=== PATIENT | female | born 1955 | race Caucasian/White ===

== ENCOUNTER 2017-07-31 08:20 | Day surgery (SDC) | payer BC ==
[~2017-07-31 08:20] MED LIST: CHONDR SU A NA/HYALUR INTRAOC KIT (SURGICARE) ONE; EPINEPHRINE INJ/PF 1 MG/1 ML AMPULE ONE; KETOROLAC TROMETHAMINE 0.45% 4 DROP/0.4 ML DROPERETTE OD PRN; LIDOCAINE 1% INJ-PF (10 MG/ML) 30 ML SDV ONE; TOBRAMYCIN SULFATE/DEXAMETH OPH OINTMENT 3.5 GM ONE
[2017-07-31] MEDS: CYCLOPENTOLATE 0.2%/PHENYLEPHRINE 1% OPH SOLN 2 ML OD PRN ×3 (08:54→09:14)
[2017-07-31] MEDS: TROPICAMIDE 1% OPH SOLN 3 ML OD PRN ×3 (08:54→09:14)
[2017-07-31] MEDS: BESIFLOXACIN HCL 0.6% OPH SUSP 5 ML BOTTLE OD PRN ×3 (08:55→09:54)
[2017-07-31] MEDS: TETRACAINE HCL 0.5% OPH SOLN 0.6 ML DROPERETTE OD PRN ×3 (08:56→09:25)
[2017-07-31] MEDS ORDERED: MIDAZOLAM 2 MG/2 ML INJ ONE (09:19)
[2017-07-31] MEDS ORDERED: FENTANYL CITRATE INJ/PF 100 MCG/2 ML AMPUL ONE (09:19)
[2017-07-31] MEDS ORDERED: ONDANSETRON HCL INJ/PF 4 MG/2 ML SDV ONE (09:22)
[2017-07-31] MEDS ORDERED: HYALURONATE SODIUM SYRINGE 0.55 ML ONE (09:52)
== END 2017-07-31 10:34 | disposition home or self-care (01) ==
LOC: SC 08:20
PROVIDERS: ATTEND Ophthalmology
PROC: 089230Z Drainage of Right Anterior Chamber with Drainage Device, Percutaneous Approach (ICD-10-PCS; 2017-07-31)
PROC: 08RJ3JZ Replacement of Right Lens with Synthetic Substitute, Percutaneous Approach (ICD-10-PCS; principal; 2017-07-31 09:15)
DX: H25.11 Age-related nuclear cataract, right eye (principal); H40.1110 Primary open-angle glaucoma, right eye, stage unspecified; E05.90 Thyrotoxicosis, unspecified without thyrotoxic crisis or storm; F41.9 Anxiety disorder, unspecified; Z79.899 Other long term (current) drug therapy
CPT/HCPCS: 0191T; 66984; 142; C1783; J0171; J2250; J2405; J3010; J3490; V2788

== ENCOUNTER 2017-08-14 09:22 | Day surgery (SDC) | payer BC ==
[~2017-08-14 09:22] MED LIST changes: -KETOROLAC TROMETHAMINE 0.45% 4 DROP/0.4 ML DROPERETTE OD PRN; +KETOROLAC TROMETHAMINE 0.45% 4 DROP/0.4 ML DROPERETTE OS PRN; +LIDOCAINE 3.5% OPH GEL/PF 1 ML/TUBE OS PRN
[2017-08-14] MEDS: TETRACAINE HCL 0.5% OPH SOLN 0.6 ML DROPERETTE OS PRN ×3 (09:40→10:27)
[2017-08-14] MEDS: TROPICAMIDE 1% OPH SOLN 3 ML OS PRN ×3 (09:40→10:06)
[2017-08-14] MEDS: CYCLOPENTOLATE 0.2%/PHENYLEPHRINE 1% OPH SOLN 2 ML OS PRN ×3 (09:41→10:06)
[2017-08-14] MEDS: BESIFLOXACIN HCL 0.6% OPH SUSP 5 ML BOTTLE OS PRN ×3 (09:41→10:50)
[2017-08-14] MEDS ORDERED: MIDAZOLAM 2 MG/2 ML INJ ONE (10:11)
[2017-08-14] MEDS ORDERED: FENTANYL CITRATE INJ/PF 100 MCG/2 ML AMPUL ONE (10:11)
[2017-08-14] MEDS ORDERED: ONDANSETRON HCL INJ/PF 4 MG/2 ML SDV ONE (10:14)
[2017-08-15] MEDS ORDERED: TETRACAINE HCL 0.5% OPH SOLN 0.6 ML DROPERETTE OS PRN (05:00)
== END 2017-08-14 11:40 | disposition home or self-care (01) ==
LOC: SC 09:22
PROVIDERS: ATTEND Ophthalmology
PROC: 08RK3JZ Replacement of Left Lens with Synthetic Substitute, Percutaneous Approach (ICD-10-PCS; principal; 2017-08-14 10:30)
DX: H25.12 Age-related nuclear cataract, left eye (principal); Z98.41 Cataract extraction status, right eye; F41.9 Anxiety disorder, unspecified; E05.90 Thyrotoxicosis, unspecified without thyrotoxic crisis or storm; Z79.899 Other long term (current) drug therapy
CPT/HCPCS: 66984; C1783; V2788; J2250; J3490 ×3; J0171; J3010; J2405; 142; A9270 GY

== ENCOUNTER → 2019-11-16 | Outpatient (CLI) | payer BC ==
[2019-11-16 10:40] LABS: ALKALINE PHOSPHATASE 39 U/L (38-126); ANION GAP 11 (5-19); ASPARTATE AMINO TRANSFERASE 21 U/L (14-36); BILIRUBIN,DIRECT 0.2 mg/dL (0.0-0.4); BILIRUBIN,TOTAL 0.5 mg/dL (0.2-1.3); BLOOD UREA NITROGEN 22 mg/dL (7-20); CALCIUM 9.3 mg/dL (8.4-10.2); CARBON DIOXIDE 27 mmol/L (22-30); CHLORIDE 101 mmol/L (98-107); CHOLESTEROL 171.26 mg/dL (0-200); GLUCOSE 80 mg/dL (75-110); POTASSIUM 4.2 mmol/L (3.6-5.0); TOTAL PROTEIN 7.1 g/dL (6.3-8.2); TRIGLYCERIDES 50 mg/dL (<150)
[2019-11-16 10:51] LABS: DIRECT LDL 116 mg/dL (<100)
== END ==
LOC: OD 09:47
PROVIDERS: ATTEND Physician Assistant
DX: R00.2 Palpitations (principal); R55 Syncope and collapse; R94.31 Abnormal electrocardiogram [ECG] [EKG]
CPT/HCPCS: 36415; 80048; 80061; 80076; 83735

== ENCOUNTER 2019-11-17 09:22 | Observation (INO) | payer BC ==
[2019-11-17] MEDS ORDERED: DILTIAZEM HCL/D5W 125 MG/125 ML RTUINJ IV PRN (09:36)
[2019-11-17 09:47] LABS: ABSOLUTE EOSINOPHILS # (AUTO) 0.1 10^3/uL (0.0-0.6); ABSOLUTE LYMPHOCYTES (AUTO) 1.7 10^3/uL (0.5-4.7); ABSOLUTE MONOCYTES (AUTO) 0.8 10^3/uL (0.1-1.4); ABSOLUTE NEUT (AUTO) 5.5 10^3/uL (1.7-8.2); BASOPHILS % (AUTO) 0.3 % (0-2); EOSINOPHILS % (AUTO) 1.6 % (0-6); HEMOGLOBIN 14.6 g/dL (12.0-15.5); MEAN CORPUSCULAR HGB CONC 33.8 g/dL (32.0-36.0); MEAN CORPUSCULAR VOLUME 86 fl (80-97); MONOCYTES % (AUTO) 9.9 % (3-13); PLATELET COUNT 195 10^3/uL (150-450); RED BLOOD COUNT 5.01 10^6/uL (3.72-5.28); RED CELL DISTRIBUTION WIDTH 14.8 % (11.5-14.0); SEGMENTED NEUTROPHILS % (AUTO) 67.2 % (42-78); TOTAL CELLS COUNTED % (AUTO) 100 %; WHITE BLOOD COUNT 8.2 10^3/uL (4.0-10.5)
[2019-11-17 09:58] LABS: INTERNATIONAL RATION (INR) 0.97; PROTHROMBIN TIME 12.9 SEC (11.4-15.4)
[2019-11-17 10:13] LABS: ALBUMIN 4.3 g/dL (3.5-5.0); ALKALINE PHOSPHATASE 43 U/L (38-126); ANION GAP 12 (5-19); ASPARTATE AMINO TRANSFERASE 25 U/L (14-36); BILIRUBIN,DIRECT 0.2 mg/dL (0.0-0.4); BILIRUBIN,TOTAL 0.7 mg/dL (0.2-1.3); BLOOD UREA NITROGEN 19 mg/dL (7-20); CALCIUM 9.3 mg/dL (8.4-10.2); CARBON DIOXIDE 24 mmol/L (22-30); CHLORIDE 102 mmol/L (98-107); CREATINE KINASE 37 U/L (30-135); GLUCOSE 108 mg/dL (75-110); POTASSIUM 3.8 mmol/L (3.6-5.0); TOTAL PROTEIN 7.8 g/dL (6.3-8.2)
[2019-11-17 10:29] LABS: FREE T3 3.53 pg/mL (2.77-5.27); FREE T4 (FREE THYROXINE) 1.2 ng/dL (0.78-2.19)
[2019-11-17 10:34] LABS: APPEARANCE,URINE SLIGHTLY-CLOUDY; BILIRUBIN,URINE NEGATIVE (NEGATIVE); COLOR,URINE YELLOW; GLUCOSE, URINE NEGATIVE (NEGATIVE); KETONES,URINE 80 mg/dL (NEGATIVE); LEUKOCYTE ESTERASE,URINE MODERATE (NEGATIVE); NITRITE,URINE NEGATIVE (NEGATIVE); PROTEIN,URINE 30 mg/dL (NEGATIVE); URINE SPECIFIC GRAVITY 1.015; UROBILINOGEN,URINE NEGATIVE mg/dL (<2.0)
[2019-11-17 10:43] LABS: THYROID STIMULATING HORMONE 3.27 uIU/mL (0.47-4.68)
--- NOTE | 2019-11-17 10:43 | ER Document Report ---
Entered by NIKKI PARK SCRIBE 11/17/19 0929 Acting as scribe for:KENZIE GUTIÉRREZ MD ED General - General Stated Complaint: HEART PROBLEMS Time Seen by Provider: 11/17/19 09:27 Primary Care Provider: DEVANTE MASON PA-C [Primary Care Provider] - Follow up as needed Mode of Arrival: Medic Information source: Patient Notes: This 64 year old female patient brought in by EMS presents to the ED today with complaints of an elevated heart rate that started at 6:30 AM this morning. Patient states that this symptom has been off and on for several years. She is only recently sought medical care for this due to worsening symptoms. She reports an episode around giving that lasted 5 hours and had some near syncope with it. She did have outpatient lab work done yesterday, and had a Holter monitor placed yesterday. She has follow-up appointment with Dr. Islas. Patient reports lightheadedness with today's episode, but denies any pain. EMS had reported heart rate of 180, gave Cardizem 25 mg bolus. On arrival to the emergency room, the initial EKG showed a heart rate of 133. When I entered the room, the nurse was trying to start an IV in her left antecubital fossa region. It was causing considerable pain, patient was bearing down, and noted that her heart rate converted to a normal sinus rhythm with a rate in the 80s. Over the next few minutes the monitor showed intermittent brief atrial fibrillation. Cardizem drip was started. The patient is on hormone replacement therapy, and thyroid medication. TRAVEL OUTSIDE OF THE [place] IN LAST 30 DAYS: No - Related Data Allergies/Adverse Reactions: No Known Allergies Allergy (Unverified 07/25/17 15:22) Past Medical History - General Information source: Patient - Social History Smoking Status: Unknown if Ever Smoked Cigarette use (# per day): No Chew tobacco use (# tins/day): No Smoking Education Provided: No Frequency of alcohol use: Occasional Drug Abuse: None Family History: Reviewed & Not Pertinent Patient has suicidal ideation: No Patient has homicidal ideation: No Past Surgical History: Reports: Hx Hysterectomy, Hx Tonsillectomy Review of Systems - Review of Systems Constitutional: No symptoms reported EENT: No symptoms reported Cardiovascular: See HPI, Heart racing, Lightheaded Respiratory: No symptoms reported Gastrointestinal: No symptoms reported Genitourinary: No symptoms reported Female Genitourinary: No symptoms reported Musculoskeletal: See HPI. denies: Muscle pain Skin: No symptoms reported Hematologic/Lymphatic: No symptoms reported Neurological/Psychological: No symptoms reported -: Yes All other systems reviewed and negative Physical Exam - Vital signs Vitals: Resp Pulse Ox 16 96 11/17/19 09:32 11/17/19 09:32 - General General appearance: Alert - HEENT Head: Normocephalic, Atraumatic Eyes: Normal Pupils: PERRL - Respiratory Respiratory status: No respiratory distress Chest status: Nontender Breath sounds: Normal Chest palpation: Normal - Cardiovascular Rhythm: Other - Rhythm was regular initially but occasionally became irregular when the patient complained of severe pain while the nurse was trying to put in an IV. During the exam, the rhythm was bouncing back and forth between normal sinus rhythm and a fib. Heart sounds: Normal auscultation Murmur: No - Abdominal Inspection: Normal Distension: No distension Bowel sounds: Normal Tenderness: Nontender - Abdomen soft Organomegaly: No organomegaly - Back Back: Normal, Nontender - Extremities General upper extremity: Normal inspection General lower extremity: Normal inspection - Neurological Neuro grossly intact: Yes Orientation: AAOx4 - Psychological Associated symptoms: Normal affect, Normal mood - Skin Skin Temperature: Warm Skin Moisture: Dry Skin Color: Normal Course - Vital Signs Vital signs: Temp Pulse Resp BP Pulse Ox 15 112/64 97 11/17/19 10:31 11/17/19 10:31 11/17/19 10:31 - Laboratory Result Diagrams: 11/17/19 09:30 11/17/19 09:30 Laboratory results interpreted by me: 11/17/19 11/17/19 09:30 10:00 RDW 14.8 H Urine Protein 30 H Urine Ketones 80 H Ur Leukocyte Esterase MODERATE H Urine Ascorbic Acid 40 H - Diagnostic Test Radiology reviewed: Image reviewed - Chest x-ray did not show acute cardiopulmonary process - EKG Interpretation by Me EKG shows normal: [place], Intervals, ST-T Waves. abnormal: QRS Complexes - Abnormal R wave progression Rate: Tachycardia - 133 Rhythm: A.Fib When compared to previous EKG there are: Previous EKG unavailable - Consults Dr. Neal Time consulted: 10:50 Consulted provider: will come to ER Critical Care Note - Critical Care Note Total time excluding time spent on procedures (mins): 35 Discharge - Discharge Clinical Impression: Atrial fibrillation with rapid ventricular response Condition: Stable Disposition: ADMITTED OBSERVATION Admitting Provider: Val (Hospitalist) Unit Admitted: Telemetry Referrals: DEVANTE MASON PA-C [Primary Care Provider] - Follow up as needed Scribe Attestation: 11/17/19 09:58 I personally performed the services described in the documentation, reviewed and edited the documentation which was dictated to the scribe in my presence, and it accurately records my words and actions. I personally performed the services described in the documentation, reviewed and edited the documentation which was dictated to the scribe in my presence, and it accurately records my words and actions.
--- NOTE | 2019-11-17 11:20 | EKG REPORT ---
SEVERITY:- ABNORMAL ECG - ATRIAL FIBRILLATION PROBABLE INFERIOR INFARCT, AGE INDETERMINATE ABNRM R PROG, CONSIDER ASMI OR LEAD PLACEMENT : Confirmed by: Rhona Potts MD 17-Nov-2019 11:19:36
--- NOTE | 2019-11-17 11:43 | RADIOLOGY REPORT (SQ) ---
EXAM DESCRIPTION: CHEST SINGLE VIEW COMPLETED DATE/TIME: 11/17/2019 10:07 am REASON FOR STUDY: tachycardia COMPARISON: None. EXAM PARAMETERS: NUMBER OF VIEWS: One view. TECHNIQUE: Single frontal radiographic view of the chest acquired. RADIATION DOSE: NA LIMITATIONS: EKG leads over the chest, portable technique FINDINGS: LUNGS AND PLEURA: No opacities, masses or pneumothorax. No pleural effusion. MEDIASTINUM AND HILAR STRUCTURES: No masses. Contour normal. HEART AND VASCULAR STRUCTURES: Heart normal in size. Normal vasculature. BONES: No acute findings. HARDWARE: None in the chest. OTHER: No other significant finding. IMPRESSION: NO ACUTE RADIOGRAPHIC FINDING IN THE CHEST. TECHNICAL DOCUMENTATION: JOB ID: [id number] [employer]- All Rights Reserved Reading location - IP/workstation name: [email or web address]
--- NOTE | 2019-11-17 12:50 | PDOC H&P ---
History of Present Illness Admission Date/PCP: 11/17/19 11:16 DEVANTE MASON PA-C Patient complains of: Palpitations History of Present Illness: MAMADOU PENG is a 64 year old female with a history of hypothyroidism presents with complaints of palpitations. Patient has been having paroxysmal episodes of palpitations over the past few years which is sometimes associated with shortness of breath and was once associated with a syncopal episode around Thanksgiving last year. Patient just started to establish care with . Roshan will give patient an event monitor 1 day ago. Patient went to his office to return the event monitor today and she was started to feel palpitations. At that time she was noted to be tachycardic with heart rate over 200s as reported by EMS. Patient was noted to be in atrial fibrillation with rapid ventricular response and received a dose of diltiazem 25 mg bolus. In the ER she was started on a Cardizem drip and referred to hospitalist service for admission. Past Medical History Cardiac Medical History: Denies: Congestive Heart Failure, Coronary Artery Disease, Myocardial Infar ction, Hypertension, Peripheral Vascular Disease Pulmonary Medical History: Denies: Asthma Neurological Medical History: Denies: Hemorrhagic CVA, Ischemic CVA, Seizures Endocrine Medical History: Reports: Hypothyroidism Denies: Diabetes Mellitus Type 1, Diabetes Mellitus Type 2 GI Medical History: Denies: Hepatitis, Hiatal Hernia Hematology: Denies: Anemia, Sickle Cell Disease Past Surgical History Past Surgical History: Reports: Hysterectomy, Tonsillectomy Denies: Amputation, Mastectomy, Pacemaker Social History Information Source: Patient Smoking Status: Never Smoker Electronic Cigarette use?: No Frequency of Alcohol Use: Social Hx Recreational Drug Use: No - Advance Directive Resuscitation Status: Full Code Family History Family History: Other - tachycardia, palpitations Parental Family History Reviewed: Yes Children Family History Reviewed: Yes Sibling(s) Family History Reviewed.: Yes Medication/Allergy Home Medications: Alprazolam [Xanax] 0.25 mg PO HSP PRN 07/30/17 Thyroid,Pork [Nature-Throid] 32.5 mg PO Q6AM 07/30/17 Bio Identical Hormones 1 tab PO ASDIR PRN 11/17/19 Cholecalciferol (Vitamin D3) [Vitamin D3 2000 unit Tablet] 2,000 unit PO TID 11/17/19 Multivitamin Pack 1 packet PO DAILY 01/14/20 Mv,Misael,Iron,Mn/Folic Acid/Chol [Hair, Skin and Nails Capsule] 1 each PO DAILY 11/17/19 Progesterone, Micronized [Progesterone] 200 mg PO QHS 11/17/19 Allergies/Adverse Reactions: No Known Allergies Allergy (Unverified 07/25/17 15:22) Review of Systems Constitutional: ABSENT: chills, fever(s) Nose, Mouth, and Throat: ABSENT: headache(s) Cardiovascular: ABSENT: chest pain, dyspnea on exertion, orthropnea Respiratory: ABSENT: cough Gastrointestinal: ABSENT: abdominal pain, constipation, diarrhea, nausea, vomiting Musculoskeletal: ABSENT: joint swelling Integumentary: ABSENT: diaphoresis Neurological: ABSENT: confusion Psychiatric: ABSENT: anxiety Endocrine: ABSENT: cold intolerance, heat intolerance Physical Exam Vital Signs: Temp Pulse Resp BP Pulse Ox 15 112/64 97 11/17/19 10:31 11/17/19 10:31 11/17/19 10:31 Intake & Output 11/16/19 11/17/19 11/18/19 06:59 06:59 06:59 Weight 89.5 kg General appearance: PRESENT: no acute distress, cooperative Neck exam: ABSENT: JVD Respiratory exam: PRESENT: clear to auscultation ivana, symmetrical, unlabored. ABSENT: tachypnea, wheezes Cardiovascular exam: PRESENT: RRR, +S1, +S2. ABSENT: diastolic murmur, systolic murmur, tachycardia Vascular exam: ABSENT: pallor GI/Abdominal exam: PRESENT: normal bowel sounds, soft. ABSENT: distended, rebound, rigid, tenderness Extremities exam: ABSENT: pedal edema, +1 edema, +2 edema Musculoskeletal exam: PRESENT: ambulatory Neurological exam: PRESENT: alert, awake, oriented to person, oriented to place, oriented to time, oriented to situation Psychiatric exam: ABSENT: agitated, anxious Skin exam: ABSENT: jaundice Results Laboratory Results: 11/17/19 09:30 11/17/19 09:30 11/17/19 11/17/19 11/17/19 09:30 09:30 09:30 WBC 8.2 RBC 5.01 Hgb 14.6 Hct 43.0 MCV 86 MCH 29.0 MCHC 33.8 RDW 14.8 H Plt Count 195 Seg Neutrophils % 67.2 Sodium 137.5 Potassium 3.8 Chloride 102 Carbon Dioxide 24 Anion Gap 12 BUN 19 Creatinine 0.83 Est GFR ( Amer) > 60 Glucose 108 Calcium 9.3 Magnesium 2.0 Total Bilirubin 0.7 AST 25 Alkaline Phosphatase 43 Total Protein 7.8 Albumin 4.3 TSH 3.27 Free T4 1.20 Free T3 pg/mL 3.53 Urine Color Urine Appearance Urine pH Ur Specific [place] Urine Protein Urine Glucose (UA) Urine Ketones Urine Blood Urine Nitrite Ur Leukocyte Esterase Urine WBC (Auto) Urine RBC (Auto) 11/17/19 10:00 WBC RBC Hgb Hct MCV MCH MCHC RDW Plt Count Seg Neutrophils % Sodium Potassium Chloride Carbon Dioxide Anion Gap BUN Creatinine Est GFR ( Amer) Glucose Calcium Magnesium Total Bilirubin AST Alkaline Phosphatase Total Protein Albumin TSH Free T4 Free T3 pg/mL Urine Color YELLOW Urine Appearance SLIGHTLY-CLOUDY Urine pH 7.0 Ur Specific [place] 1.015 Urine Protein 30 H Urine Glucose (UA) NEGATIVE Urine Ketones 80 H Urine Blood NEGATIVE Urine Nitrite NEGATIVE Ur Leukocyte Esterase MODERATE H Urine WBC (Auto) 2 Urine RBC (Auto) 2 11/17/19 11/17/19 09:30 09:30 Creatine Kinase 37 Troponin I < 0.012 Impressions: Chest X-Ray 11/17/19 09:24 IMPRESSION: NO ACUTE RADIOGRAPHIC FINDING IN THE CHEST. Assessment and Plan - Diagnosis (1) Atrial fibrillation with rapid ventricular response Is this a current diagnosis for this admission?: Yes Plan: New onset paroxysmal atrial fibrillation Was in RVR in the 200s initially but currently now back in normal sinus rhythm after initiation of diltiazem drip Chads vasc score of 1 Start on baby aspirin D/c drip and Start diltiazem p.o. 60 mg ir every 6 hours Check echocardiogram TSH and electrolytes within normal limits Monitor on telemetry Patient just established care with Dr. Islas (2) Hypothyroid Qualifiers: Hypothyroidism type: acquired Qualified Code(s): E03.9 - Hypothyroidism, unspecified Is this a current diagnosis for this admission?: Yes Plan: Thyroid function test within normal limits - Time Time Spent with patient: 35 or more minutes
[2019-11-17] MEDS ORDERED: ALPRAZOLAM 0.25 MG TABLET PO PRN (14:13)
[2019-11-17] MEDS ORDERED: DILTIAZEM HCL 30 MG TABLET ONE (16:02)
[2019-11-17] MEDS ORDERED: DILTIAZEM HCL 60 MG TABLET ONE (16:07)
[2019-11-17] MEDS: DILTIAZEM HCL 60 MG TABLET PO SCH ×2 (16:45→17:15)
[2019-11-17] MEDS ORDERED: DILTIAZEM HCL 60 MG TABLET PO SCH (18:00)
[2019-11-17] MEDS ORDERED: METOPROLOL TARTRATE PF/INJ 5 MG/5 ML SDV IV PRN (18:48)
[2019-11-18] MEDS: DILTIAZEM HCL 60 MG TABLET PO SCH ×2 (00:27→05:07)
[2019-11-18] MEDS ORDERED: THYROID PORK 32.5 MG PO SCH (06:00)
--- NOTE | 2019-11-18 09:20 | PDOC DISCHARGE SUMMARY ---
Impression - Admit/DC Date/PCP Admission Date/Primary Care Provider: 11/17/19 11:16 DEVANTE MASON PA-C Discharge Date: 11/18/19 - Discharge Diagnosis (1) Paroxysmal atrial fibrillation with rapid ventricular response Is this a current diagnosis for this admission?: Yes (2) Elevated troponin level not due to acute coronary syndrome Is this a current diagnosis for this admission?: Yes (3) Hypothyroid Is this a current diagnosis for this admission?: Yes - Assessment Summary: Patient was admitted after being noted to be in atrial fibrillation with rapid ventricular response on EKG. Patient has been having several bouts of paroxysmal atrial fibrillation over the past few years but had never been diagnosed officially with atrial fibrillation. Patient was started on a diltiazem drip after heart rate persisted in the 130s. She subsequently converted to normal sinus rhythm and was transitioned to oral diltiazem immediate release. She has maintained in normal sinus rhythm through the night with no recurrence of the atrial fibrillation and her blood pressures have been able to tolerate this dose and as such she has been converted to diltiazem CD 180 mg daily and started on aspirin 81 mg daily given her chads vasc score of 1. Echocardiogram was done and the results will be read by Dr. Islas who is patient's primary basket braider and patient will follow-up with him to get the results. Patient has been scheduled for follow-up meeting with Dr. Islas. Of note, patient's thyroid function test was normal, chest x-ray was normal and she did have mild troponin elevation which peaked around 0.1 and then trended down which is likely secondary to demand mismatch from patient's tachyarrhythmia. Patient has no complaints of chest pain or shortness of breath throughout her stay in the hospital. She is safe and steady for discharge. - Additional Information Resuscitation Status: Full Code Discharge Diet: As Tolerated Discharge Activity: Activity As Tolerated Referrals: DEVANTE MASON PA-C [Primary Care Provider] - 12/01/19 3:30 pm Prescriptions: Diltiazem HCl [Cardizem Cd 180 mg Capsule] 180 mg PO DAILY #30 capsule.cr Aspirin [Ecotrin 81 mg EC Tablet] 81 mg PO DAILY #30 tabec Home Medications: Alprazolam [Xanax] 0.25 mg PO HSP PRN 07/30/17 Thyroid,Pork [Nature-Throid] 32.5 mg PO Q6AM 07/30/17 Bio Identical Hormones 1 tab PO ASDIR PRN 11/17/19 Cholecalciferol (Vitamin D3) [Vitamin D3 2000 unit Tablet] 2,000 unit PO TID 11/17/19 Multivitamin Pack 1 packet PO DAILY 11/17/19 Mv,Misael,Iron,Mn/Folic Acid/Chol [Hair, Skin and Nails Capsule] 1 each PO DAILY 11/17/19 Progesterone, Micronized [Progesterone] 200 mg PO QHS 11/17/19 Aspirin [Ecotrin 81 mg EC Tablet] 81 mg PO DAILY #30 tabec 11/18/19 Diltiazem HCl [Cardizem Cd 180 mg Capsule] 180 mg PO DAILY #30 capsule.cr 11/18/19 History of Present Illiness History of Present Illness: MAMADOU PENG is a 64 year old female with a history of hypothyroidism presents with complaints of palpitations. Patient has been having paroxysmal episodes of palpitations over the past few years which is sometimes associated with shortness of breath and was once associated with a syncopal episode around giving last year. Patient just started to establish care with . Roshan will give patient an event monitor 1 day ago. Patient went to his office to return the event monitor today and she was started to feel palpitations. At that time she was noted to be tachycardic with heart rate over 200s as reported by EMS. Patient was noted to be in atrial fibrillation with rapid ventricular response and received a dose of diltiazem 25 mg bolus. In the ER she was started on a Cardizem drip and referred to hospitalist service for admission. Physical Exam Vital Signs: Temp Pulse Resp BP Pulse Ox 97.7 F 75 16 103/54 L 97 11/18/19 04:04 11/18/19 07:00 11/18/19 04:04 11/18/19 04:04 11/18/19 04:04 Intake & Output 11/17/19 11/18/19 11/19/19 06:59 06:59 06:59 Intake Total 385 Balance 385 Weight 85.6 kg General appearance: PRESENT: no acute distress, cooperative Respiratory exam: PRESENT: clear to auscultation ivana Cardiovascular exam: PRESENT: RRR, +S1, +S2. ABSENT: irregular rhythm, tachycardia Results Laboratory Results: WBC 8.2 10^3/uL (4.0-10.5) 11/17/19 09:30 RBC 5.01 10^6/uL (3.72-5.28) 11/17/19 09:30 Hgb 14.6 g/dL (12.0-15.5) 11/17/19 09:30 Hct 43.0 % (36.0-47.0) 11/17/19 09:30 MCV 86 fl (80-97) 11/17/19 09:30 MCH 29.0 pg (27.0-33.4) 11/17/19 09:30 MCHC 33.8 g/dL (32.0-36.0) 11/17/19 09:30 RDW 14.8 % (11.5-14.0) H 11/17/19 09:30 Plt Count 195 10^3/uL (150-450) 11/17/19 09:30 Lymph % (Auto) 21.0 % (13-45) 11/17/19 09:30 [place] % (Auto) 9.9 % (3-13) 11/17/19 09:30 Eos % (Auto) 1.6 % (0-6) 11/17/19 09:30 Baso % (Auto) 0.3 % (0-2) 11/17/19 09:30 Absolute Neuts (auto) 5.5 10^3/uL (1.7-8.2) 11/17/19 09:30 Absolute Lymphs (auto) 1.7 10^3/uL (0.5-4.7) 11/17/19 09:30 Absolute Monos (auto) 0.8 10^3/uL (0.1-1.4) 11/17/19 09:30 Absolute Eos (auto) 0.1 10^3/uL (0.0-0.6) 11/17/19 09:30 Absolute Basos (auto) 0.0 10^3/uL (0.0-0.2) 11/17/19 09:30 Seg Neutrophils % 67.2 % (42-78) 11/17/19 09:30 PT 12.9 SEC (11.4-15.4) 11/17/19 09:30 INR 0.97 11/17/19 09:30 Sodium 137.5 mmol/L (137-145) 11/17/19 09:30 Potassium 3.8 mmol/L (3.6-5.0) 11/17/19 09:30 Chloride 102 mmol/L (98-107) 11/17/19 09:30 Carbon Dioxide 24 mmol/L (22-30) 11/17/19 09:30 Anion Gap 12 (5-19) 11/17/19 09:30 BUN 19 mg/dL (7-20) 11/17/19 09:30 Creatinine 0.83 mg/dL (0.52-1.25) 11/17/19 09:30 Est GFR ( Amer) > 60 (>60) 11/17/19 09:30 Est GFR (MDRD) Non-Af > 60 (>60) 11/17/19 09:30 Glucose 108 mg/dL (75-110) 11/17/19 09:30 POC Glucose 111 mg/dL (70-110) H 11/17/19 21:56 Calcium 9.3 mg/dL (8.4-10.2) 11/17/19 09:30 Magnesium 2.0 mg/dL (1.6-2.3) 11/17/19 09:30 Total Bilirubin 0.7 mg/dL (0.2-1.3) 11/17/19 09:30 Direct Bilirubin 0.2 mg/dL (0.0-0.4) 11/17/19 09:30 Neonat Total Bilirubin Not Reportable 11/17/19 09:30 Neonat Direct Bilirubin Not Reportable 11/17/19 09:30 Neonat Indirect Bili Not Reportable 11/17/19 09:30 AST 25 U/L (14-36) 11/17/19 09:30 ALT 14 U/L (<35) 11/17/19 09:30 Alkaline Phosphatase 43 U/L (38-126) 11/17/19 09:30 Creatine Kinase 37 U/L (30-135) 11/17/19 09:30 Troponin I 0.086 ng/mL 11/18/19 04:15 Total Protein 7.8 g/dL (6.3-8.2) 11/17/19 09:30 Albumin 4.3 g/dL (3.5-5.0) 11/17/19 09:30 TSH 3.27 uIU/mL (0.47-4.68) 11/17/19 09:30 Free T4 1.20 ng/dL (0.78-2.19) 11/17/19 09:30 Free T3 pg/mL 3.53 pg/mL (2.77-5.27) 11/17/19 09:30 Urine Color YELLOW 11/17/19 10:00 Urine Appearance SLIGHTLY-CLOUDY 11/17/19 10:00 Urine pH 7.0 (5.0-9.0) 11/17/19 10:00 Ur Specific [place] 1.015 11/17/19 10:00 Urine Protein 30 mg/dL (NEGATIVE) H 11/17/19 10:00 Urine Glucose (UA) NEGATIVE mg/dL (NEGATIVE) 11/17/19 10:00 Urine Ketones 80 mg/dL (NEGATIVE) H 11/17/19 10:00 Urine Blood NEGATIVE (NEGATIVE) 11/17/19 10:00 Urine Nitrite NEGATIVE (NEGATIVE) 11/17/19 10:00 Urine Bilirubin NEGATIVE (NEGATIVE) 11/17/19 10:00 Urine Urobilinogen NEGATIVE mg/dL (<2.0) 11/17/19 10:00 Ur Leukocyte Esterase MODERATE (NEGATIVE) H 11/17/19 10:00 Urine WBC (Auto) 2 /HPF 11/17/19 10:00 Urine RBC (Auto) 2 /HPF 11/17/19 10:00 U Hyaline Cast (Auto) 19 /LPF 11/17/19 10:00 Urine Bacteria (Auto) TRACE /HPF 11/17/19 10:00 Squamous Epi Cells Auto 5 /HPF 11/17/19 10:00 Urine Mucus (Auto) MOD /LPF 11/17/19 10:00 Urine Ascorbic Acid 40 (NEGATIVE) H 11/17/19 10:00 11/17/19 11/17/19 11/17/19 09:30 12:10 17:02 Troponin I < 0.012 0.052 0.133 11/18/19 04:15 Troponin I 0.086 Impressions: Chest X-Ray 11/17/19 09:24 IMPRESSION: NO ACUTE RADIOGRAPHIC FINDING IN THE CHEST. Plan Time Spent: Less than 30 Minutes Stroke Is this a Stroke Patient?: No Acute Heart Failure - Is this a Heart Failure Patient?: No
[2019-11-18] MEDS ORDERED: DILTIAZEM HCL 180 MG CAPSULE.CR PO SCH (10:00)
[2019-11-18] MEDS ORDERED: ASPIRIN 81 MG TABLET, ENT COATED PO SCH (10:00)
[2019-11-18] MEDS ORDERED: ENOXAPARIN SODIUM INJ 40 MG/0.4 ML DISP.SYRIN SUBCUT SCH (10:00)
[2019-11-18 10:29] VITALS: BP 118/46
--- NOTE | 2019-11-18 11:36 | EKG REPORT ---
SEVERITY:- BORDERLINE ECG - SINUS RHYTHM BORDERLINE R WAVE PROGRESSION, ANTERIOR LEADS BORDERLINE T ABNORMALITIES, ANTERIOR LEADS : Confirmed by: Rhona Potts MD 18-Nov-2019 11:35:45
--- NOTE | 2019-11-18 16:21 | XCELERA REPORT ---
[address] [address] Transthoracic Echocardiogram Report Name: MAMADOU PENG Age: 64 yrs Gender: Female : 1955 Patient Status: Inpatient Patient Location: [facility]^A Study Date: 11/17/2019 04:28 PM Height: 65 in Weight: 197 lb BSA: 2.0 m2 Reason For Study: new onset afib. Patient of dr. islas Ordering Physician: GRAZYNA PHILLIPS Performed By: Kelly Martell Interpretation Summary Technicall poor study. Poor Apical 2 chamber view. No Biplane LVEF calculated. No CLARENCE calculation. Poor RV and RA visualization, and no TR jet captured. Unable to derive RVSP. Min post pericardial effusion. Mild caclcified aortic root, ascending aorta may be slightly dilated at 18.mm/m2. AV is 3 cusps with mild nonstenotic calcific aortic valvular disease.with trace AR and no LV enlargement LVESD 31mm . No Mitral annular calcification, Normal MV with no MS, no MVP, and trace MR with no LA enlargement by M-mode, CLARENCE not done. No LVH, Normal visual LVEF 60-65%, but no LVEF biplane done but there is LVDD- I. no segmental wall motion abnormality. RH poorly visualised, No RVSD, no RH enlargement visually but no detail measurements, no ASD. No RVSP derived due to no attempt at TR jet. Summary = Pt has PA Fib. By ECHO, no MS, no MVP, no signif MR and probably no LV or LA enlargement, and no ASD.Probably normal LVsize and function, but LVDD. No RVSP derived. Mild Asc. aorta enlargement. MMode/2D Measurements & Calculations RVDd: 2.1 cm LVIDd: 4.6 cm FS: 33.8 % Ao root diam: 3.7 cm IVSd: 0.98 cm LVIDs: 3.1 cm EDV(Teich): 98.8 ml LVPWd: 0.91 cm ESV(Teich): 36.9 ml Ao root area: 10.9 cm2 LA dimension: 3.4 cm EF(Teich): 62.6 % Doppler Measurements & Calculations MV E max nazario: MV P1/2t max nazario: Ao V2 max: LV V1 max P.9 cm/sec 107.6 cm/sec 140.1 cm/sec 6.3 mmHg MV A max nazario: MV P1/2t: 65.1 msec Ao max PG: LV V1 max: 111.1 cm/sec MVA(P1/2t): 3.4 cm2 7.8 mmHg 125.0 cm/sec MV E/A: 0.79 MV dec slope: 484.1 cm/sec2 MV dec time: 0.27 sec PA V2 max: MV P1/2t-pr_phl: 91.2 cm/sec 65.1 msec PA max P.3 mmHg I WMSI = 1.00 % Normal = 100 Segments Size X - Cannot 2 - 4 - 1-2 small Interpret 1 - Normal Hypokinetic 3 - AkineticDyskinetic 3-5 moderate 5 - 6-14 large Aneurysmal 15-16 diffuse : GRAZYNA PHILLIPS Andre
== END 2019-11-18 10:38 | disposition home or self-care (01) ==
LOC: ER 09:22 → EH 11:16 → 4N 16:00
PROVIDERS: ADMIT Internal Medicine; ATTEND Internal Medicine
DX: I48.0 Paroxysmal atrial fibrillation (principal); R79.89 Other specified abnormal findings of blood chemistry; E03.9 Hypothyroidism, unspecified; Z79.899 Other long term (current) drug therapy; Z79.890 Hormone replacement therapy; Z82.49 Family history of ischemic heart disease and other diseases of the circulatory system
CPT/HCPCS: 93005 ×2; 99291; 96365; 96366; 36415 ×2; 84439; 82962; 82550; 83735; 84443; 85025; 85610; 80053; 81001; 84484 ×2; 84481; 93306; 71045; 93010 ×2; G0378 ×3; J3490 ×3

== ENCOUNTER 2020-01-24 10:06 | Emergency (ER) | payer BC, MEDICARE ==
--- NOTE | 2020-01-24 10:11 | ER Document Report ---
ED Medical Screen (RME) - General Chief Complaint: Chest Pain Stated Complaint: CHEST PAIN Time Seen by Provider: 01/24/20 10:10 Primary Care Provider: DEVANTE MASON PA-C [PHYSICIAN VICE PRESIDENT OF ENGINEERING] - Follow up as needed Mode of Arrival: Ambulatory Information source: Patient Notes: 65-year-old female presented to ED for sharp chest pain to the center of her chest. She states it does radiate down her left arm at times it is sharp and at times it is just achy like a toothache. She states both pains come and go. She states she did just have an ablation for her atrial fib on January 14. She states she does take Eliquis every day. She states she no longer takes aspirin because of the Eliquis. She is alert oriented respirations regular nonlabored speaking in full sentences. She states she does not have any shortness of breath at this time. I have greeted and performed a rapid initial assessment of this patient. A comprehensive ED assessment and evaluation of the patient, analysis of test results and completion of medical decision making process will be conducted by an additional ED providers. TRAVEL OUTSIDE OF THE [place] IN LAST 30 DAYS: No - Related Data Allergies/Adverse Reactions: No Known Allergies Allergy (Unverified 07/25/17 15:22) Past Medical History - Past Medical History Cardiac Medical History: Denies: Hx Congestive Heart Failure, Hx Coronary Artery Disease, Hx Heart Attack, Hx Hypertension, Hx Peripheral Vascular Disease Pulmonary Medical History: Denies: Hx Asthma Neurological Medical History: Denies: Hx Cerebrovascular Accident, Hx Seizures Endocrine Medical History: Reports: Hx Hypothyroidism. Denies: Hx Diabetes Mellitus Type 1, Hx Diabetes Mellitus Type 2 GI Medical History: Denies: Hx Hepatitis, Hx Hiatal Hernia, Hx Ulcer Infectious Medical History: Denies: Hx Hepatitis Past Surgical History: Reports: Hx Hysterectomy, Hx Tonsillectomy. Denies: Hx Mastectomy, Hx Open Heart Surgery, Hx Pacemaker Physical Exam - Vital signs Vitals: Temp Pulse Resp BP Pulse Ox 97.3 F 96 14 125/84 97 01/24/20 10:15 01/24/20 10:15 01/24/20 10:15 01/24/20 10:15 01/24/20 10:15 Course - Vital Signs Vital signs: Temp Pulse Resp BP Pulse Ox 97.3 F 96 14 110/63 97 01/24/20 10:15 01/24/20 10:15 01/24/20 14:01 01/24/20 14:01 01/24/20 14:01 - Laboratory Result Diagrams: 01/24/20 10:32 01/24/20 10:32 Laboratory results interpreted by me: 01/24/20 10:32 RDW 14.7 H Doctor's Discharge - Discharge Referrals: DEVANTE MASON, VERAC [PHYSICIAN VICE PRESIDENT OF ENGINEERING] - Follow up as needed
[2020-01-24 10:41] LABS: ABSOLUTE BASOPHILS # (AUTO) 0.1 10^3/uL (0.0-0.2); ABSOLUTE EOSINOPHILS # (AUTO) 0.2 10^3/uL (0.0-0.6); ABSOLUTE LYMPHOCYTES (AUTO) 1.6 10^3/uL (0.5-4.7); ABSOLUTE MONOCYTES (AUTO) 0.5 10^3/uL (0.1-1.4); ABSOLUTE NEUT (AUTO) 4.1 10^3/uL (1.7-8.2); BASOPHILS % (AUTO) 0.9 % (0-2); EOSINOPHILS % (AUTO) 2.7 % (0-6); HEMATOCRIT 36.5 % (36.0-47.0); HEMOGLOBIN 12.4 g/dL (12.0-15.5); LYMPHOCYTES % (AUTO) 24.6 % (13-45); MEAN CORPUSCULAR HEMOGLOBIN 28.7 pg (27.0-33.4); MEAN CORPUSCULAR VOLUME 84 fl (80-97); MONOCYTES % (AUTO) 8.2 % (3-13); PLATELET COUNT 238 10^3/uL (150-450); RED BLOOD COUNT 4.33 10^6/uL (3.72-5.28); RED CELL DISTRIBUTION WIDTH 14.7 % (11.5-14.0); SEGMENTED NEUTROPHILS % (AUTO) 63.6 % (42-78); TOTAL CELLS COUNTED % (AUTO) 100 %; WHITE BLOOD COUNT 6.5 10^3/uL (4.0-10.5)
[2020-01-24 10:59] LABS: ALBUMIN 3.7 g/dL (3.5-5.0); ALKALINE PHOSPHATASE 43 U/L (38-126); ANION GAP 6 (5-19); ASPARTATE AMINO TRANSFERASE 19 U/L (14-36); BILIRUBIN,TOTAL 0.3 mg/dL (0.2-1.3); BLOOD UREA NITROGEN 19 mg/dL (7-20); CALCIUM 8.9 mg/dL (8.4-10.2); CARBON DIOXIDE 28 mmol/L (22-30); CHLORIDE 103 mmol/L (98-107); GLUCOSE 101 mg/dL (75-110); POTASSIUM 4.3 mmol/L (3.6-5.0); TOTAL PROTEIN 6.8 g/dL (6.3-8.2)
--- NOTE | 2020-01-24 11:26 | RADIOLOGY REPORT (SQ) ---
EXAM DESCRIPTION: CHEST 2 VIEWS COMPLETED DATE/TIME: 01/24/2020 10:56 am REASON FOR STUDY: chest pain COMPARISON: None. EXAM PARAMETERS: NUMBER OF VIEWS: two views TECHNIQUE: Digital Frontal and Lateral radiographic views of the chest acquired. RADIATION DOSE: NA LIMITATIONS: none FINDINGS: LUNGS AND PLEURA: No opacities, masses or pneumothorax. No pleural effusion. MEDIASTINUM AND HILAR STRUCTURES: No masses or contour abnormalities. HEART AND VASCULAR STRUCTURES: Heart normal size. No evidence for failure. BONES: No acute findings. HARDWARE: None in the chest. OTHER: No other significant finding. IMPRESSION: NO ACUTE RADIOGRAPHIC FINDING IN THE CHEST. TECHNICAL DOCUMENTATION: JOB ID: [id number] 2010 [employer]- All Rights Reserved Reading location - IP/workstation name: [email or web address]
--- NOTE | 2020-01-24 12:30 | EKG REPORT ---
SEVERITY:- BORDERLINE ECG - SINUS RHYTHM BORDERLINE R WAVE PROGRESSION, ANTERIOR LEADS : Confirmed by: Rhona Potts MD 24-Jan-2020 12:29:46
[2020-01-24 15:37] VITALS: BP 114/76
--- NOTE | 2020-01-25 16:51 | ER Document Report ---
Entered by BRO FREEMAN SCRIBE 01/24/20 1043 Acting as scribe for:ADEOLA GALO MD ED General - General Chief Complaint: Chest Pain Stated Complaint: CHEST PAIN Time Seen by Provider: 01/24/20 10:10 Primary Care Provider: DEVANTE MASON PA-C [PHYSICIAN ENGINEER [employer] DEPLOYMENT] - Follow up as needed Mode of Arrival: Ambulatory Information source: Patient Notes: This 65 year old female patient presents to the emergency department today with intermittent chest pain. Patient states she was walking her dogs this morning at 7am and felt pain in her chest. Patient states the pain is mild, ranked 2/10 and lasts for a minute. Patient states she was diagnosed with atrial fibrillation x3 months ago and had a heart ablation done x2 months ago at [place]. Patient states everything went well and now has normal rhythm. Patient states she is still taking eliquis and took one this morning. Patient denies any shortness of breath, nausea, and has normal bowel movement. TRAVEL OUTSIDE OF THE [place] IN LAST 30 DAYS: No - Related Data Allergies/Adverse Reactions: No Known Allergies Allergy (Unverified 07/25/17 15:22) Past Medical History - General Information source: Patient - Social History Smoking Status: Never Smoker Cigarette use (# per day): No Lives with: Alone Family History: Other - tachycardia, palpitations Patient has suicidal ideation: No Patient has homicidal ideation: No - Past Medical History Cardiac Medical History: Reports: Hx Atrial Fibrillation Endocrine Medical History: Reports: Hx Hypothyroidism Psychiatric Medical History: Reports: Hx Anxiety Past Surgical History: Reports: Hx Hysterectomy, Hx Tonsillectomy Review of Systems - Review of Systems Constitutional: No symptoms reported EENT: No symptoms reported Cardiovascular: See HPI, Chest pain Respiratory: See HPI. denies: Short of breath Gastrointestinal: See HPI. denies: Nausea Genitourinary: No symptoms reported Female Genitourinary: No symptoms reported Musculoskeletal: No symptoms reported Skin: No symptoms reported Hematologic/Lymphatic: No symptoms reported Neurological/Psychological: No symptoms reported -: Yes All other systems reviewed and negative Physical Exam - Vital signs Vitals: Temp Pulse Resp BP Pulse Ox 97.3 F 96 14 125/84 97 01/24/20 10:15 01/24/20 10:15 01/24/20 10:15 01/24/20 10:15 01/24/20 10:15 Interpretation: Normal - General General appearance: Appears well, Alert - HEENT Head: Normocephalic, Atraumatic Eyes: Normal Pupils: PERRL Sinus: Normal Pharynx: Normal Neck: Supple - Respiratory Respiratory status: No respiratory distress Chest status: Nontender Breath sounds: Normal Chest palpation: Normal - Cardiovascular Rhythm: Regular Heart sounds: Normal auscultation Murmur: No - Abdominal Inspection: Obese Distension: No distension Bowel sounds: Normal Tenderness: Nontender - Extremities General upper extremity: Normal inspection. No: Edema General lower extremity: Normal inspection. No: Edema - Neurological Neuro grossly intact: Yes Cognition: Normal Orientation: AAOx4 - Psychological Associated symptoms: Normal affect, Normal mood - Skin Skin Temperature: Warm Skin Moisture: Dry Skin Color: Normal Course - Re-evaluation Re-evalutation: 01/24/20 15:05 Patient resting comfortably not showing any signs of distress states her pain level has diminished. The greatest pain level was was 2 out of 10. She states is less often and less sharp in nature at this time. - Vital Signs Vital signs: Temp Pulse Resp BP Pulse Ox 97.3 F 96 12 114/76 97 01/24/20 10:15 01/24/20 10:15 01/24/20 15:01 01/24/20 15:01 01/24/20 15:01 - Laboratory Result Diagrams: 01/24/20 10:32 01/24/20 10:32 Laboratory results interpreted by me: 01/24/20 10:32 RDW 14.7 H Second troponin 0 0.012 not showing any elevation at this time. Patient has no hemodynamic or rhythm disturbance at this time. - Diagnostic Test Radiology results interpreted by me: 01/24/20 15:06 Twelve-lead EKG done at 1015 shows borderline R wave progression in anterior leads otherwise no acute process. Discharge - Discharge Clinical Impression: Chest pain Condition: Stable Disposition: HOME, SELF-CARE Instructions: Chest Pain of Unclear Cause ([facility]) Additional Instructions: Chest Wall Pain Your chest pain has been diagnosed as coming from the chest wall. This is often caused by straining the muscles or joints in the chest during physical activity, direct trauma, coughing, or vigorous vomiting. Persons with arthritis are especially prone to this type of pain, due to inflammation of the cartilage joints near the breast bone. Occasionally, no cause can be found. Rest from strenuous physical activity. This kind of chest pain is usually made worse by movement of the chest. Depending on the symptoms, we may prescribe medicine for pain, muscle relaxation, and antiinflammatory effects. If the pain is new, and seems to be due to muscle strain, cold packs can help. Otherwise, apply gentle warmth to the painful area for 15 minutes every hour or two. You should contact the doctor immediately if things change. Further evaluation is needed if you develop a fever or cough, if the nature of the pain changes, or if you become short of breath. Follow-up with primary care clinic as you have an appointment tomorrow. Return to the hospital if you have any worsening chest pain. Referrals: DEVANTE MASON PA-C [PHYSICIAN ENGINEER [employer] DEPLOYMENT] - Follow up as needed I personally performed the services described in the documentation, reviewed and edited the documentation which was dictated to the scribe in my presence, and it accurately records my words and actions.
== END 2020-01-24 15:15 | disposition home or self-care (01) ==
LOC: ER 10:06
DX: R07.9 Chest pain, unspecified (principal); I48.91 Unspecified atrial fibrillation; Z79.01 Long term (current) use of anticoagulants; Z98.890 Other specified postprocedural states
CPT/HCPCS: 36415; 71046; 80053; 83735; 84484; 85025; 93005; 93010; 99285

== ENCOUNTER → 2020-03-14 | Outpatient (CLI) | payer MEDICARE, BC ==
[2020-03-14 08:55] LABS: HEMATOCRIT 39.1 % (36.0-47.0); HEMOGLOBIN 13.5 g/dL (12.0-15.5); MEAN CORPUSCULAR HEMOGLOBIN 29.2 pg (27.0-33.4); MEAN CORPUSCULAR HGB CONC 34.4 g/dL (32.0-36.0); MEAN CORPUSCULAR VOLUME 85 fl (80-97); PLATELET COUNT 218 10^3/uL (150-450); RED CELL DISTRIBUTION WIDTH 14.6 % (11.5-14.0); WHITE BLOOD COUNT 5.5 10^3/uL (4.0-10.5)
[2020-03-14 09:00] LABS: APPEARANCE,URINE CLOUDY; BILIRUBIN,URINE NEGATIVE (NEGATIVE); GLUCOSE, URINE NEGATIVE (NEGATIVE); KETONES,URINE TRACE mg/dL (NEGATIVE); LEUKOCYTE ESTERASE,URINE NEGATIVE (NEGATIVE); NITRITE,URINE NEGATIVE (NEGATIVE); PROTEIN,URINE NEGATIVE (NEGATIVE); URINE SPECIFIC GRAVITY 1.025; UROBILINOGEN,URINE NEGATIVE mg/dL (<2.0)
[2020-03-14 09:02] LABS: COLOR,URINE DARK YELLOW
[2020-03-14 09:12] LABS: ALBUMIN 4.2 g/dL (3.5-5.0); ALKALINE PHOSPHATASE 34 U/L (38-126); ANION GAP 7 (5-19); ASPARTATE AMINO TRANSFERASE 21 U/L (14-36); BILIRUBIN,TOTAL 0.3 mg/dL (0.2-1.3); BLOOD UREA NITROGEN 15 mg/dL (7-20); CALCIUM 9.1 mg/dL (8.4-10.2); CARBON DIOXIDE 29 mmol/L (22-30); CHLORIDE 100 mmol/L (98-107); GLUCOSE 95 mg/dL (75-110); POTASSIUM 4.3 mmol/L (3.6-5.0); TOTAL PROTEIN 6.9 g/dL (6.3-8.2)
== END ==
LOC: OD 08:00
PROVIDERS: ATTEND Physician Assistant
DX: I48.0 Paroxysmal atrial fibrillation (principal); Z79.01 Long term (current) use of anticoagulants
CPT/HCPCS: 36415; 80048; 80076; 81001; 82272; 85027; 85730

== ENCOUNTER → 2020-05-20 | Outpatient (CLI) | payer MEDICARE, BC ==
[2020-05-20 10:23] LABS: ALBUMIN 4.2 g/dL (3.5-5.0); ALKALINE PHOSPHATASE 41 U/L (38-126); ASPARTATE AMINO TRANSFERASE 25 U/L (14-36); BILIRUBIN,TOTAL 0.5 mg/dL (0.2-1.3); CHOLESTEROL 153.68 mg/dL (0-200); TOTAL PROTEIN 7.2 g/dL (6.3-8.2); TRIGLYCERIDES 49 mg/dL (<150)
[2020-05-20 10:36] LABS: DIRECT LDL 76 mg/dL (<100)
== END ==
LOC: OD 08:55
PROVIDERS: ATTEND Physician Assistant
DX: E78.5 Hyperlipidemia, unspecified (principal); Z79.899 Other long term (current) drug therapy
CPT/HCPCS: 36415; 80061; 80076

== ENCOUNTER → 2020-09-01 | Outpatient (CLI) | payer MEDICARE, BC ==
[2020-09-01 12:30] LABS: HEMATOCRIT 36.2 % (36.0-47.0); HEMOGLOBIN 12.4 g/dL (12.0-15.5); MEAN CORPUSCULAR HEMOGLOBIN 29.2 pg (27.0-33.4); MEAN CORPUSCULAR HGB CONC 34.3 g/dL (32.0-36.0); MEAN CORPUSCULAR VOLUME 85 fl (80-97); PLATELET COUNT 185 10^3/uL (150-450); RED BLOOD COUNT 4.25 10^6/uL (3.72-5.28); RED CELL DISTRIBUTION WIDTH 14.3 % (11.5-14.0); WHITE BLOOD COUNT 6.3 10^3/uL (4.0-10.5)
[2020-09-01 12:43] LABS: TRIGLYCERIDES 48 mg/dL (<150)
[2020-09-01 12:48] LABS: ALBUMIN 4.2 g/dL (3.5-5.0); ALKALINE PHOSPHATASE 47 U/L (38-126); ANION GAP 7 (5-19); ASPARTATE AMINO TRANSFERASE 27 U/L (14-36); BILIRUBIN,DIRECT 0.1 mg/dL (0.0-0.4); BILIRUBIN,TOTAL 0.7 mg/dL (0.2-1.3); BLOOD UREA NITROGEN 12 mg/dL (7-20); CALCIUM 9.4 mg/dL (8.4-10.2); CARBON DIOXIDE 28 mmol/L (22-30); CHLORIDE 102 mmol/L (98-107); GLUCOSE 83 mg/dL (75-110); POTASSIUM 4.3 mmol/L (3.6-5.0)
[2020-09-01 12:54] LABS: DIRECT LDL 46 mg/dL (<100)
[2020-09-02 14:56] LABS: APPEARANCE,URINE SLIGHTLY-CLOUDY; BILIRUBIN,URINE NEGATIVE (NEGATIVE); COLOR,URINE YELLOW; GLUCOSE, URINE NEGATIVE (NEGATIVE); KETONES,URINE NEGATIVE (NEGATIVE); LEUKOCYTE ESTERASE,URINE NEGATIVE (NEGATIVE); NITRITE,URINE NEGATIVE (NEGATIVE); PROTEIN,URINE NEGATIVE (NEGATIVE); URINE SPECIFIC GRAVITY 1.019; UROBILINOGEN,URINE NEGATIVE mg/dL (<2.0)
== END ==
LOC: OD 10:30
PROVIDERS: ATTEND Internal Medicine Cardiovascular Disease
DX: E78.5 Hyperlipidemia, unspecified (principal); I48.0 Paroxysmal atrial fibrillation; Z79.01 Long term (current) use of anticoagulants; Z79.899 Other long term (current) drug therapy
CPT/HCPCS: 36415; 80048; 80061; 80076; 81001; 82272; 85027; 85730

== ENCOUNTER → 2020-11-28 | Outpatient (CLI) | payer MEDICARE, BC ==
[2020-11-28 08:35] LABS: HEMATOCRIT 39.7 % (36.0-47.0); HEMOGLOBIN 13.3 g/dL (12.0-15.5); MEAN CORPUSCULAR HEMOGLOBIN 28.4 pg (27.0-33.4); MEAN CORPUSCULAR HGB CONC 33.6 g/dL (32.0-36.0); MEAN CORPUSCULAR VOLUME 85 fl (80-97); PLATELET COUNT 206 10^3/uL (150-450); RED CELL DISTRIBUTION WIDTH 14.4 % (11.5-14.0)
[2020-11-28 08:57] LABS: ALBUMIN 3.9 g/dL (3.5-5.0); ALKALINE PHOSPHATASE 43 U/L (38-126); ANION GAP 10 (5-19); ASPARTATE AMINO TRANSFERASE 25 U/L (14-36); BILIRUBIN,DIRECT 0.1 mg/dL (0.0-0.4); BILIRUBIN,TOTAL 0.6 mg/dL (0.2-1.3); BLOOD UREA NITROGEN 20 mg/dL (7-20); CALCIUM 9.5 mg/dL (8.4-10.2); CARBON DIOXIDE 27 mmol/L (22-30); CHLORIDE 102 mmol/L (98-107); GLUCOSE 89 mg/dL (75-110); POTASSIUM 4.5 mmol/L (3.6-5.0); TOTAL PROTEIN 6.9 g/dL (6.3-8.2)
[2020-11-29 09:18] LABS: AMORPHOUS SEDIMENT,URINE 1+ /HPF; APPEARANCE,URINE CLOUDY; BILIRUBIN,URINE NEGATIVE (NEGATIVE); COLOR,URINE YELLOW; GLUCOSE, URINE NEGATIVE (NEGATIVE); KETONES,URINE NEGATIVE (NEGATIVE); LEUKOCYTE ESTERASE,URINE NEGATIVE (NEGATIVE); NITRITE,URINE NEGATIVE (NEGATIVE); PROTEIN,URINE NEGATIVE (NEGATIVE); URINE SPECIFIC GRAVITY 1.016; UROBILINOGEN,URINE NEGATIVE mg/dL (<2.0)
== END ==
LOC: OD 07:44
PROVIDERS: ATTEND Physician Assistant
DX: I48.0 Paroxysmal atrial fibrillation (principal); Z79.01 Long term (current) use of anticoagulants; Z79.899 Other long term (current) drug therapy
CPT/HCPCS: 36415; 80048; 80076; 81001; 82272; 85027; 85730